=== PATIENT | female | born 1975 | race Two or more races ===

== ENCOUNTER 2017-03-02 21:50 | Emergency (ER) | payer BC ==
--- NOTE | 2017-03-02 21:53 | PDOC ---
History of Present Illness - General History Source: Patient Exam Limitations: No Limitations - History of Present Illness Initial Comments: 03/02/17 21:53 The patient is a 41 year old female with a significant past medical history of anxiety, who presents to the ED s/p anxiety attack. Patient states she was supposed to get on a flight to [place] but had to get off due to an anxiety attack. She complains of a mild headache as well. Patient denies fever, chills, nausea, vomiting, diarrhea. Denies dysuria, frequency, hematuria. <Tomasz Larson - Last Filed: 03/02/17 21:53> <Christopher Sierra - Last Filed: 03/03/17 05:41> - General Chief Complaint: Psychiatric Stated Complaint: PANIC ATTACK Past History <Tomasz Larson - Last Filed: 03/02/17 21:53> - Past Medical History Anemia: No Asthma: No Cancer: No Cardiac Disorders: Yes (HEART MURMUR) CVA: No COPD: No CHF: No Dementia: No Diabetes: No GI Disorders: No Disorders: No HTN: No Hypercholesterolemia: No Liver Disease: No Seizures: No Thyroid Disease: No - Surgical History Abdominal Surgery: No Appendectomy: No Cardiac Surgery: No Cholecystectomy: No Lung Surgery: No Neurologic Surgery: No Orthopedic Surgery: No - Psycho/Social/Smoking Cessation Hx Smoking History: Current some day smoker Have you smoked in the past 12 months: Yes Number of Cigarettes Smoked Daily: 2 Hx Alcohol Use: Yes (SOCIAL) Drug/Substance Use Hx: No Substance Use Type: None Hx Substance Use Treatment: No <Christopher Sierra - Last Filed: 03/03/17 05:41> - Past Medical History Allergies/Adverse Reactions: Allergies Allergy/AdvReac Type Severity Reaction Status Date / Time No Known Allergies Allergy Verified 03/02/17 22:00 Home Medications: Ambulatory Orders Cefuroxime Axetil [Ceftin] 500 mg PO BID #10 tablet 03/09/12 Cefuroxime Axetil [Ceftin] 500 mg PO BID #10 tablet 03/09/12 Oxycodone HCl/Acetaminophen [Percocet 5-325 mg Tablet] 1 - 2 each PO Q4H PRN # 30 tablet 03/09/12 Tylenol Extra Strength PO PRN PRN 03/09/12 Diazepam [Valium] 5 mg PO DAILY PRN #5 tablet MDD 5 03/02/17 Review of Systems - Review of Systems Able to Perform ROS?: Yes Comments:: 03/02/17 21:53 GENERAL/CONSTITUTIONAL: No fever or chills. No weakness. Anxiety. HEAD, EYES, EARS, NOSE AND THROAT: No change in vision. No ear pain or discharge. No sore throat. CARDIOVASCULAR: No chest pain or shortness of breath. RESPIRATORY: No cough, wheezing, or hemoptysis. GASTROINTESTINAL: No nausea, vomiting, diarrhea or constipation. GENITOURINARY: No dysuria, frequency, or change in urination. MUSCULOSKELETAL: No joint or muscle swelling or pain. No neck or back pain. SKIN: No rash NEUROLOGIC: No headache, vertigo, loss of consciousness, or change in strength/ sensation. ENDOCRINE: No increased thirst. No abnormal weight change. HEMATOLOGIC/LYMPHATIC: No anemia, easy bleeding, or history of blood clots. ALLERGIC/IMMUNOLOGIC: No hives or skin allergy. <Tomasz Larson - Last Filed: 03/02/17 21:53> *Physical Exam - Physical Exam Comments: 03/02/17 21:54 GENERAL: Awake, alert, and fully oriented, in no acute distress HEAD: No signs of trauma EYES: PERRLA, EOMI, sclera anicteric, conjunctiva clear ENT: Auricles normal inspection, hearing grossly normal, nares patent, oropharynx clear without exudates. Moist mucosa NECK: Normal ROM, supple, no lymphadenopathy, JVD, or masses LUNGS: Tachypnea. No wheezes, and no crackles HEART: Tachycardia. normal S1 and S2, no murmurs, rubs or gallops ABDOMEN: Soft, nontender, normoactive bowel sounds. No guarding, no rebound. No masses EXTREMITIES: Normal range of motion, no edema. No clubbing or cyanosis. No cords, erythema, or tenderness NEUROLOGICAL: Cranial nerves II through XII grossly intact. Normal speech, normal gait SKIN: Warm, Dry, normal turgor, no rashes or lesions noted. ALLERGIC/IMMUNOLOGIC: No hives or skin allergy. <Tomasz Larson - Last Filed: 03/02/17 21:53> Medical Decision Making - Medical Decision Making 03/03/17 05:41 panic attack symptoms improved in ED after valium <Christopher Sierra - Last Filed: 03/03/17 05:41> *DC/Admit/Observation/Transfer - Attestations Scribe Attestion: 03/02/17 21:55 Documentation prepared by Tomasz Larson, acting as medical case manager for Emergency Dept,Physician, . <Tomasz Larson - Last Filed: 03/02/17 21:53> <Christopher Sierra - Last Filed: 03/03/17 05:41> Diagnosis at time of Disposition: Panic attack - Discharge Dispostion Disposition: HOME Condition at time of disposition: Stable - Prescriptions Prescriptions: Diazepam [Valium] 5 mg PO DAILY PRN #5 tablet MDD 5 PRN Reason: Anxiety - Patient Instructions Printed Discharge Instructions: DI for Panic Disorder - Post Discharge Activity Work/School Note: Back to Work
[2017-03-02] MEDS ORDERED: diazePAM 5 MG TABLET PO ONE (22:02)
[2017-03-02 22:07] VITALS: BP 141/89; PULSE 75; TEMP 97.9; BMI 23.9
[2017-03-02] MEDS ORDERED: IBUPROFEN 600 MG TABLET (FP) PO ONE (22:34)
== END 2017-03-02 23:45 | disposition home or self-care (01) ==
LOC: FER 21:50
DX: F41.0 Panic disorder [episodic paroxysmal anxiety] (principal); R01.1 Cardiac murmur, unspecified; F17.210 Nicotine dependence, cigarettes, uncomplicated
CPT/HCPCS: 99281-25

== ENCOUNTER → 2021-09-27 | Day surgery (SDC) | payer BC ==
[2021-09-24 14:45] VITALS: BMI 26.1
[2021-09-27 15:09] VITALS: TEMP 97.8
[2021-09-27 16:13] VITALS: BP 111/66; PULSE 59
== END | disposition home or self-care (01) ==
LOC: JASU-ENDO 05:19
PROVIDERS: ATTEND Internal Medicine Gastroenterology
PROC: 0DB98ZX Excision of Duodenum, Via Natural or Artificial Opening Endoscopic, Diagnostic (ICD-10-PCS; 2021-09-27)
PROC: 0DB78ZX Excision of Stomach, Pylorus, Via Natural or Artificial Opening Endoscopic, Diagnostic (ICD-10-PCS; 2021-09-27)
PROC: 0DJD8ZZ Inspection of Lower Intestinal Tract, Via Natural or Artificial Opening Endoscopic (ICD-10-PCS; principal; 2021-09-27 14:00)
DX: K59.00 Constipation, unspecified (principal); K64.8 Other hemorrhoids; R10.84 Generalized abdominal pain
CPT/HCPCS: 81025; 88305-TC; 88342-TC